=== PATIENT | female | born 1955 | race Caucasian/White ===

== ENCOUNTER 2019-10-05 07:19 | Day surgery (SDC) | payer BC ==
[2019-10-05] MEDS ORDERED: Midazolam 1 MG/ML 2 ML SDV IV ONE ×9 (07:20→08:36)
[2019-10-05] MEDS ORDERED: fentaNYL 100 MCG/2 ML SDV IV ONE ×3 (07:20→08:29)
[2019-10-05] MEDS ORDERED: fentaNYL 100 MCG/2 ML SDV ONE (08:14)
[2019-10-05] MEDS ORDERED: Midazolam 1 MG/ML 2 ML SDV ONE (08:14)
[2019-10-05] MEDS ORDERED: Dextrose 5%-0.45% NaCl 1,000 ML IV SCH (08:15)
--- NOTE | 2019-10-05 09:18 | OR ---
DATE: 10/05/2019 PREOPERATIVE DIAGNOSIS: Positive Cologuard test. POSTOPERATIVE DIAGNOSIS: Positive Cologuard test. PROCEDURE: Total colonoscopy. ANESTHESIA: Conscious sedation with IV Versed and fentanyl. SPECIMEN: None. OPERATIVE FINDINGS: Moderate left-sided diverticulosis, otherwise normal. No evidence of gross polyps or cancers. RECOMMENDATIONS: Followup colonoscopy for screening in 10 years or earlier for symptoms. INDICATION FOR PROCEDURE: This 64-year-old female has a positive Cologuard test. DESCRIPTION OF PROCEDURE: After adequate preparation, a colonoscope was inserted into the rectum. This was easily passed all the way to the cecum. Confirmation of the cecum was made by visualization of the ileocecal valve and by palpation in the right lower quadrant. The bowel prep was very good. On withdrawal of the scope, the only abnormality noted was moderate sigmoid diverticulosis on the left side. There was no evidence otherwise of colitis, polyp, gross cancers, masses, or bleeding sites. Anal and rectal examinations are also normal. She does have some external hemorrhoids, but no significant internal hemorrhoids. Air was suctioned from the colon and the scope removed. [facility] /[id number]
== END 2019-10-05 10:30 | disposition home or self-care (01) ==
LOC: DL.ENDO 07:19
PROVIDERS: ATTEND Surgery
DX: K64.4 Residual hemorrhoidal skin tags (principal); K57.30 Diverticulosis of large intestine without perforation or abscess without bleeding
CPT/HCPCS: 45378; J2250; J3010; J7042; G0105

== ENCOUNTER 2024-07-09 15:37 | Emergency (ER) | payer MEDICARE, OTHER ==
[2024-07-09 15:57] LABS: BASOPHILS PERCENT AUTO 0.6 % (0.0-1.0); EOSINOPHILS PERCENT AUTO 1.3 % (1.0-3.0); HEMATOCRIT 37.1 % (37.0-47.0); HEMOGLOBIN 12.3 g/dL (12.0-16.0); LYMPHOCYTES PERCENT AUTO 39.9 % (20.5-50.1); MEAN CORPUSCULAR HEMOGLOBIN 28.9 pg (27.0-34.0); MEAN CORPUSCULAR HGB CONC 33.2 g/dL (33.0-35.0); MEAN CORPUSCULAR VOLUME 87.3 fL (80-100); MONOCYTES PERCENT AUTO 7.7 % (2-8); NEUTROPHILS PERCENT AUTO 50.5 % (42.2-75.2); PLATELET COUNT,PLT 291 10^3/uL (150-450); RED BLOOD CELL COUNT 4.25 10^6/uL (4.2-5.4); WHITE BLOOD CELL COUNT,WBC 9.7 10^3/uL (5.0-10.0)
[2024-07-09 16:17] LABS: ALBUMIN 3.8 g/dL (3.4-5.0); ANION GAP 8.9 mEq/L (7-13); BILIRUBIN TOTAL 0.3 mg/dL (0.2-1.0); BUN/CREATININE RATIO 16.4 (No establ ref range); CALCIUM 9.2 mg/dL (8.5-10.1); CREATININE 1.1 mg/dL (0.55-1.02); EST CRCL DRUG DOSING (CG) 46.46 mL/min; PHOSPHORUS 3.1 mg/dL (2.6-4.7); POTASSIUM,K 3.9 mmol/L (3.5-5.1); PROTEIN TOTAL,TP 7.5 g/dL (6.4-8.2)
== END 2024-07-09 18:40 | disposition home or self-care (01) ==
LOC: DL.ED 15:37
DX: R56.9 Unspecified convulsions (principal); I25.10 Atherosclerotic heart disease of native coronary artery without angina pectoris; K21.9 Gastro-esophageal reflux disease without esophagitis; E66.9 Obesity, unspecified; Z79.899 Other long term (current) drug therapy; Z79.82 Long term (current) use of aspirin
CPT/HCPCS: 36415; 70450; 80053; 82947; 83605; 83735; 84100; 85025; 93005; 99285